=== PATIENT | female | born 1995 | race Caucasian/White ===

== ENCOUNTER 2017-01-11 19:01 | Emergency (ER) | payer BC ==
[2017-01-11 19:06] VITALS: BP 124/64
--- NOTE | 2017-01-11 19:32 | UC ---
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 She states the pain has been constant, and is worse with lifting, movement or coughing. She states she also had a few days of constipation, followed by what is now watery stools. She denies any abnormal vaginal bleeding or discharge, fever, chills, nausea or vomiting. - History of Current Complaint Chief Complaint: UCAbdominalPain Stated Complaint: ABDOMINAL PAIN Time Seen by Provider: 01/11/17 19:08 Hx Obtained From: Patient Hx Last Menstrual Period: 12/16/16 ?: No Onset/Duration: Lasting Hours Timing: Constant Severity Initially: Moderate Severity Currently: Moderate Location: Other - directly below and slighlt to the left of the umbilicus. Character: Sharp Aggravating Factor(s): Movement, Other: - coughing, lifting. Alleviating Factor(s): Nothing Associated Signs and Symptoms: Positive: Negative Allergies/Adverse Reactions: Allergies Allergy/AdvReac Type Severity Reaction Status Date / Time No Known Allergies Allergy Verified 01/11/17 19:06 PMH/Surg Hx/FS Hx/Imm Hx Previously Healthy: Yes - Surgical History Surgical History: None - Family History Known Family History: Positive: None - Social History Occupation: Employed Full-time Alcohol Use: None Substance Use Type: None Smoking Status (MU): Never Smoked Tobacco Review of Systems Constitutional: Negative Skin: Negative Eyes: Negative ENT: Negative Respiratory: Negative Cardiovascular: Negative Gastrointestinal: Abdominal Pain Genitourinary: Negative Motor: Negative Neurovascular: Negative Musculoskeletal: Negative Neurological: Negative Psychological: Negative All Other Systems Reviewed And Are Negative: Yes Physical Exam Triage Information Reviewed: Yes Appearance: Well-Appearing Vital Signs: Initial Vital Signs Temp 98.8 F 01/11/17 19:02 Pulse 80 01/11/17 19:02 Resp 16 01/11/17 19:02 BP 124/64 01/11/17 19:02 Pulse Ox 100 01/11/17 19:02 Vital Signs Reviewed: Yes Eye Exam: Normal ENT Exam: Normal Dental Exam: Normal Neck exam: Normal Neck: Positive: 1 Respiratory Exam: Normal Cardiovascular Exam: Normal Abdominal Exam: Normal, Other - palpable pain below the unbilicus and slightly to the right. no masses noted. no rebound aor guarding noted. 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 On exam there are not nonreducible hernia , or masses. Symtpoms are concerning for hernia therefore the patient was referred to ER. Patient will transfer in private car. At the time of discharge the patient was hemodynamically stable, and friend available to drive her to the ER. - Differential Dx/Diagnosis Differential Diagnosis: Other - abdominal pain Provider Diagnoses: abdominal pain Discharge - Discharge Plan Condition: Stable Disposition: HOME Patient Education Materials: Abdominal Pain (ED) Referrals: Phan Marquez MD [Primary Care Provider] -
== END 2017-01-11 19:30 | disposition home or self-care (01) ==
LOC: UCEAST 19:01
DX: R10.30 Lower abdominal pain, unspecified (principal); X50.0XXA Overexertion from strenuous movement or load, initial encounter; Y92.71 Barn as the place of occurrence of the external cause
CPT/HCPCS: 99211; G0463

== ENCOUNTER 2017-07-19 19:29 | Emergency (ER) | payer BC ==
[2017-07-19 19:49] VITALS: BP 107/64
[2017-07-19] MEDS ORDERED: Cephalexin CAP* 500 MG PO ONE (20:13)
[2017-07-19] MEDS ORDERED: Naproxen TAB* 250 MG PO ONE (20:13)
--- NOTE | 2017-07-19 20:23 | UC ---
Throat Pain/Nasal Dank HPI - HPI Summary HPI Summary: 22 yo female with progressively worsening painful swollen gland at left angle of the jaw mild FELIZ fatigue no f/c no sore throat hurts to turn head side to side no n/v/d - History of Current Complaint Chief Complaint: UCGeneralIllness Stated Complaint: SOFT TISSUE COMPLAINT Time Seen by Provider: 07/19/17 19:57 Hx Obtained From: Patient Hx Last Menstrual Period: [id number] Onset/Duration: Gradual Onset, Lasting Weeks Severity: Moderate Pain Intensity: 8 Pain Scale Used: 0-10 Numeric Cough: None - Epiglottits Risk Factors Epiglottis Risk Factors: Negative - Allergies/Home Medications Allergies/Adverse Reactions: Allergies Allergy/AdvReac Type Severity Reaction Status Date / Time No Known Allergies Allergy Verified 07/19/17 19:50 PMH/Surg Hx/FS Hx/Imm Hx Previously Healthy: Yes - Surgical History Surgical History: None - Family History Known Family History: Positive: Hypertension - Social History Alcohol Use: Weekly Substance Use Type: None Smoking Status (MU): Never Smoked Tobacco Review of Systems Constitutional: Fatigue Skin: Negative Eyes: Negative ENT: Negative Respiratory: Negative Cardiovascular: Negative Gastrointestinal: Negative Genitourinary: Negative Motor: Negative Neurovascular: Negative Musculoskeletal: Negative Neurological: Headache - mild Psychological: Negative Is Patient Immunocompromised?: No All Other Systems Reviewed And Are Negative: Yes Physical Exam Triage Information Reviewed: Yes Appearance: Well-Appearing, No Pain Distress, Well-Nourished Vital Signs: Initial Vital Signs Temp 98.5 F 07/19/17 19:44 Pulse 90 07/19/17 19:44 Resp 16 07/19/17 19:44 BP 107/64 07/19/17 19:44 Pulse Ox 100 07/19/17 19:44 Vital Signs Reviewed: Yes Eyes: Positive: Conjunctiva Clear ENT: Positive: Hearing grossly normal, Pharynx normal, TMs normal, Uvula midline. Negative: Nasal congestion, Nasal drainage, TM bulging, TM dull, TM red, Tonsillar swelling, Tonsillar exudate, Trismus, Muffled voice, Hoarse voice , Dental tenderness, Sinus tenderness Neck: Positive: Supple, Tenderness @ - large left ant cer node, Enlarged Nodes @ - in addition to large left cervical node has a small right ant cerv node as well as a small left post cervical node. No supraclavicular nodes Respiratory: Positive: Lungs clear, Normal breath sounds, No respiratory distress, No accessory muscle use Cardiovascular: Positive: RRR, No Murmur, Pulses Normal Abdomen Description: Positive: Nontender, No Organomegaly. Negative: CVA Tenderness (R), CVA Tenderness (L) Bowel Sounds: Positive: Present Musculoskeletal: Positive: ROM Intact, No Edema Neurological: Positive: Alert Psychological Exam: Normal Skin Exam: Other - quarter sized area of mild erthyema overlying left cervical LN Throat Pain/Nasal Course/Dx - Differential Dx/Diagnosis Provider Diagnoses: adenopathy with possible early left cervical lymphadenitis Discharge - Sign-Out/Discharge Documenting (check all that apply): Discharge - Discharge Plan Condition: Stable Disposition: HOME Prescriptions: Cephalexin CAP* [Keflex CAP*] 500 mg PO QID #28 cap Naproxen Sodium [Naproxen Sodium 500 MG TAB] 500 mg PO BID PRN #30 tab PRN Reason: Pain Patient Education Materials: Lymphadenopathy (ED) Referrals: Bora HOWARD,Senait Aly [Primary Care Provider] - 4 Days (if not better) Additional Instructions: HEAT RECHECK HERE OR ER FOR NEW OR WORSENING SYMPTOMS blood work pending - Billing Disposition and Condition Condition: STABLE Disposition: HOME
[2017-07-20 10:58] LABS: Hematocrit 38 % (35-47); Hemoglobin 13.1 g/dl (12.0-16.0); Mean Corpuscular HGB Conc 34 g/dl (31-36); Mean Corpuscular Hemoglobin 29 pg (27-31); Mean Corpuscular Volume 84 fL (80-97); Mean Platelet Volume 8.4 um3 (7.4-10.4); Platelet Count 210 10^3/ul (150-450); Red Blood Count 4.56 10^6/ul (4.0-5.4); Red Cell Distribution Width 13 % (10.5-15); White Blood Count 7.4 10^3/ul (3.5-10.8)
== END 2017-07-19 20:40 | disposition home or self-care (01) ==
LOC: UCEAST 19:29
DX: R59.1 Generalized enlarged lymph nodes (principal); R51 Headache; R53.83 Other fatigue
CPT/HCPCS: 36415; 85027; 86308; 99212; A9270-GY; G0463

== ENCOUNTER 2017-08-10 17:58 | Emergency (ER) | payer BC, OTHER ==
[2017-08-10 18:26] VITALS: BP 126/73
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
== END 2017-08-10 20:01 | disposition home or self-care (01) ==
LOC: UCCORT 17:58
DX: S16.1XXA Strain of muscle, fascia and tendon at neck level, initial encounter (principal); V43.52XA Car driver injured in collision with other type car in traffic accident, initial encounter; Y93.9 Activity, unspecified; Y92.9 Unspecified place or not applicable; R51 Headache
CPT/HCPCS: 72050; 99213; G0463